=== PATIENT | male | born 1980 | race Caucasian/White ===

== ENCOUNTER 2018-05-24 10:58 | Emergency (ER) | payer MEDICAID ==
[2018-05-24] MEDS ORDERED: Naloxone 0.4 mg/ml Inj (Adult) ONE (11:03)
[2018-05-24 11:08] VITALS: RESP 19; O2SAT 98
--- NOTE | 2018-05-24 11:08 | ED PDOC ---
HPI: Psych/Substance Abuse Time Seen by Provider: 05/24/18 11:01 Chief Complaint (Nursing): Substance Abuse Chief Complaint (Provider): substance abuse History Per: EMS, Other (girlfriend) Onset/Duration Of Symptoms: Hrs Past Medical History Reviewed: Historical Data, Nursing Documentation, Vital Signs - Medical History PMH: No Chronic Diseases - Surgical History Surgical History: No Surg Hx - Family History Family History: States: Unknown Family Hx - Home Medications Home Medications: Ambulatory Orders Medication Instructions Recorded Clindamycin [Cleocin] 300 mg PO TID #30 cap 11/06/15 - Allergies Allergies/Adverse Reactions: Allergies Allergy/AdvReac Type Severity Reaction Status Date / Time No Known Allergies Allergy Verified 11/06/15 19:10 Review of Systems Review Of Systems: ROS cannot be obtained secondary to pt's inabilty to answer questions. Physical Exam - Reviewed Nursing Documentation Reviewed: Yes Vital Signs Reviewed: Yes - Physical Exam Head Exam: Positive for: ATRAUMATIC, NORMAL INSPECTION, NORMOCEPHALIC Skin: Positive for: Normal Color, Warm, Dry Eye Exam: Positive for: EOMI, Other (Pinpoint pupils) Neck: Positive for: Normal Cardiovascular/Chest: Positive for: Regular Rate, Rhythm. Negative for: Murmur Respiratory: Positive for: Other (Assisted with BVM) Gastrointestinal/Abdominal: Positive for: Normal Exam, Soft. Negative for: Tenderness Back: Positive for: Normal Inspection Extremity: Positive for: Normal ROM (all extremities). Negative for: Deformity, Swelling Neurologic/Psych: Positive for: Alert Medical Decision Making Medical Decision Making: Time: 11:01 Initial Impression: substance abuse Initial Plan: Scribe Attestation: Documented by Tre Montemayor, acting as a scribe for Scott Johnson MD Provider Scribe Attestation: All medical record entries made by the Scribe were at my direction and personally dictated by me. I have reviewed the chart and agree that the record accurately reflects my personal performance of the history, physical exam, medical decision making, and the department course for this patient. I have also personally directed, reviewed, and agree with the discharge instructions and disposition. Disposition - Disposition Forms: [employer] (Cymro)
[2018-05-24] MEDS ORDERED: Naloxone 0.4 mg/ml Inj (Adult) IVP STA (11:13)
[2018-05-24] MEDS ORDERED: Sodium Chloride 0.9% 1,000 ML IV STA (11:14)
--- NOTE | 2018-05-24 11:19 | ED PDOC ---
HPI: Psych/Substance Abuse Time Seen by Provider: 05/24/18 11:01 Chief Complaint (Nursing): Substance Abuse Chief Complaint (Provider): Substance abuse ED Caveat: Acuity of Condition History Per: EMS, Family, Other (Girlfriend) History/Exam Limitations: clinical condition Onset/Duration Of Symptoms: Hrs (prior to arrival) Additional Complaint(s): Pedro Dang is a 37 year old male, with no significant past medical history, who was brought to the emergency department by EMS unconscious from possible substance abuse. Per girlfriend, patient went to visit a friend in [place] but when he came back she noticed he was acting differently and lost consciousness which prompted her to bring him to the hospital. They were in the car when this happened. On arrival to ED, patient is unconscious, diaphoretic and with pinpoint pupils. Unable to obtain full history from patient due to clinical condition. PMD: None Past Medical History Reviewed: Historical Data, Nursing Documentation, Vital Signs Vital Signs: Last Vital Signs Temp 97.6 F 05/24/18 11:04 Pulse 100 H 05/24/18 11:04 Resp 19 05/24/18 11:04 BP Pulse Ox 98 05/24/18 11:04 - Medical History PMH: No Chronic Diseases - Surgical History Surgical History: No Surg Hx - Family History Family History: States: Unknown Family Hx - Home Medications Home Medications: Ambulatory Orders Medication Instructions Recorded Clindamycin [Cleocin] 300 mg PO TID #30 cap 11/06/15 Naloxone HCl [Narcan] 4 mg NS ONCE PRN #1 spray 05/24/18 - Allergies Allergies/Adverse Reactions: Allergies Allergy/AdvReac Type Severity Reaction Status Date / Time No Known Allergies Allergy Verified 11/06/15 19:10 Review of Systems Review Of Systems: ROS cannot be obtained secondary to pt's inabilty to answer questions. Physical Exam - Reviewed Nursing Documentation Reviewed: Yes Vital Signs Reviewed: Yes - Physical Exam Appears: Positive for: In Acute Distress Head Exam: Positive for: ATRAUMATIC, NORMAL INSPECTION, NORMOCEPHALIC Skin: Positive for: Normal Color, Warm, Dry Eye Exam: Positive for: PERRL, Other (Pinpoint pupils) Neck: Positive for: Supple Cardiovascular/Chest: Positive for: Regular Rate, Rhythm. Negative for: Murmur Respiratory: Positive for: Other (Assisted with BVM). Negative for: Accessory Muscle Use Gastrointestinal/Abdominal: Positive for: Normal Exam, Soft. Negative for: Tenderness Back: Positive for: Normal Inspection Extremity: Positive for: Other (no moving extremities). Negative for: Deformity Neurologic/Psych: Positive for: Other (not responding to any commands). 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, Oriented - Laboratory Results Result Diagrams: 05/24/18 11:36 02 11:36 Lab Results: 16.5 wbc; urine opiates and marijuana - ECG ECG: Positive for: Interpreted By Me, Viewed By Me ECG Rhythm: Positive for: Normal QRS, Normal ST Segment, Sinus Rhythm O2 Sat by Pulse Oximetry: 98 (RA) Pulse Ox Interpretation: Normal - CT Scan/US ct Other Rad Studies (CT/US): Read By Radiologist Other Rad Interpretation: no acute - Critical Care Total Time (In Min): 30 Documented Critical Care: Time excludes all time spent performint seperately billable procedures Medical Decision Making Medical Decision Making: Time: 11:01 Initial Impression: Substance abuse Initial Plan: --EKG --Alcohol serum --CMP --Drug screen, urine --Troponin I --CBC w/ differential --NaCl 1,000 ml IV 1,000 ml/hr --Narcan 2 mg IVP -BVM used to assist pt. respirations. 11:02 -Patient became alert and responsive after 2mg of Narcan. 12:[address] FINDINGS: HEMORRHAGE: No intracranial hemorrhage. BRAIN: No mass effect or edema. No atrophy or chronic microvascular ischemic changes. VENTRICLES: Unremarkable. No hydrocephalus. CALVARIUM: Unremarkable. PARANASAL SINUSES: Unremarkable as visualized. No significant inflammatory changes. MASTOID AIR CELLS: Unremarkable as visualized. No inflammatory changes. OTHER FINDINGS: None. IMPRESSION: Normal CT of the Head. No acute intracranial hemorrhage. 12:40 -On reevaluation, patient reports feeling better but denies taking any drugs. Patient admits to smoking cigarettes but denies substance abuse. Patient denies any suicidal or homicidal ideation. -Per girlfriend, no hx of substance abuse or drugs. Scribe Attestation: Documented by Tre Montemayor, acting as a scribe for Evaristo Kelley MD Provider Scribe Attestation: All medical record entries made by the Scribe were at my direction and personally dictated by me. I have reviewed the chart and agree that the record accurately reflects my personal performance of the history, physical exam, medical decision making, and the department course for this patient. I have also personally directed, reviewed, and agree with the discharge instructions and disposition. 1313: Stable. AAOx3. Pain free. Tolerated PO. Ambulated with no issues. UDS positive. Disposition - Clinical Impression Clinical Impression: Drug abuse - Patient ED Disposition Is Patient to be Admitted: No Counseled Patient/Family Regarding: Studies Performed, Diagnosis, Need For Followup, Rx Given - Disposition Referrals: [facility] [Outside] - 05/27/18 Disposition: Routine/Home Disposition Time: 13:16 Condition: STABLE Additional Instructions: Return if not better in 3 days. Prescriptions: Naloxone HCl [Narcan] 4 mg NS ONCE PRN #1 spray PRN Reason: Opiate Reversal Instructions: Drug Abuse and Drug Addiction (DC)
[2018-05-24 11:50] LABS: BASO # 0.1 K/uL (0.0-0.2); BASO % 0.7 % (0.0-2.0); EOS # 0.2 K/uL (0.0-0.7); EOS % 1.2 % (0.0-4.0); HEMOGLOBIN 13.6 g/dL (12.0-18.0); LYMPH # 5.8 K/uL (1.0-4.3); LYMPH % 35.3 % (20.0-40.0); MEAN CELL VOLUME 91.5 fl (80.0-94.0); MEAN CORPUSCULAR HEMOGLOBIN 29.7 pg (27.0-31.0); MEAN CORPUSCULAR HGB CONC 32.5 g/dL (33.0-37.0); MEAN PLATELET VOLUME 7.9 fl (7.2-11.7); MONO # 1.4 K/uL (0.0-0.8); MONO % 8.7 % (0.0-10.0); NEUT % 54.1 % (50.0-75.0); NRBC % 0.1 % (0.0-0.0); RBC 4.58 Mil/uL (4.40-5.90); RED CELL DISTRIBUTION WIDTH 13.7 % (11.5-14.5); WHITE BLOOD COUNT 16.5 K/uL (4.8-10.8)
[2018-05-24 11:58] LABS: ALB/GLOB RATIO 1.5 (1.0-2.1); ALBUMIN 4.5 g/dL (3.5-5.0); ALT/SGPT 34 U/L (21-72); AST/SGOT 34 U/L (17-59); BLOOD UREA NITROGEN 13 mg/dl (9-20); GFR NON-AFRICAN AMERICAN > 60
[2018-05-24 12:25] LABS: BARBITURATES, UR NEGATIVE (NEGATIVE); BENZODIAZEPINES, UR NEGATIVE (NEGATIVE); OPIATES, UR POSITIVE (NEGATIVE); PHENCYCLIDINE, UR NEGATIVE (NEGATIVE)
--- NOTE | 2018-05-24 12:28 | CT ---
Date of service: 05/24/2018 PROCEDURE: CT HEAD WITHOUT CONTRAST. HISTORY: headache COMPARISON: None available. TECHNIQUE: Axial computed tomography images were obtained through the head/brain without intravenous contrast. Radiation dose: Total exam DLP = 827.68 mGy-cm. This CT exam was performed using one or more of the following dose reduction techniques: Automated exposure control, adjustment of the mA and/or kV according to patient size, and/or use of iterative reconstruction technique. FINDINGS: HEMORRHAGE: No intracranial hemorrhage. BRAIN: No mass effect or edema. No atrophy or chronic microvascular ischemic changes. VENTRICLES: Unremarkable. No hydrocephalus. CALVARIUM: Unremarkable. PARANASAL SINUSES: Unremarkable as visualized. No significant inflammatory changes. MASTOID AIR CELLS: Unremarkable as visualized. No inflammatory changes. OTHER FINDINGS: None. IMPRESSION: Normal CT of the Head. No acute intracranial hemorrhage.
[2018-05-24] MEDS ORDERED: Potassium Chloride 20 mEq ER Tab PO STA (13:15)
[2018-05-24] MEDS ORDERED: Potassium Chloride 20 mEq ER Tab PO ONE (13:34)
[2018-05-24 13:59] VITALS: BP 128/80; PULSE 78; TEMP 97.7
--- NOTE | 2018-05-24 21:53 | CARD ---
APPROVED REPORT Date of service: 05/24/2018 EKG Measurement Heart [id number] <Conclusion> Normal sinus rhythm Normal ECG
== END 2018-05-24 14:24 | disposition home or self-care (01) ==
LOC: H.ER 10:58
DX: F19.10 Other psychoactive substance abuse, uncomplicated (principal); F17.210 Nicotine dependence, cigarettes, uncomplicated
CPT/HCPCS: 70450; 80053; 80320; 80324; 80345; 80346; 80349; 80353; 80358; 80361; 82948; 83992; 84484; 85025; 93005; 96374; 99283; J2310; J7030

== ENCOUNTER 2018-05-25 05:37 | Emergency (ER) | payer MEDICAID, OTHER ==
[2018-05-25 05:46] VITALS: BMI 26.1
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
[2018-05-25 08:20] VITALS: BP 110/78; PULSE 78; RESP 19; TEMP 97.6; O2SAT 98
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
== END 2018-05-25 08:33 ==
LOC: H.ER 05:37
DX: S09.90XA Unspecified injury of head, initial encounter (principal); Y04.0XXA Assault by unarmed brawl or fight, initial encounter; Y92.89 Other specified places as the place of occurrence of the external cause

== ENCOUNTER 2018-06-30 02:21 | Emergency (ER) | payer OTHER ==
[2018-06-30 02:22] VITALS: BMI 26.1
--- NOTE | 2018-06-30 02:37 | ED PDOC ---
HPI: Psych/Substance Abuse Time Seen by Provider: 06/30/18 02:29 Chief Complaint (Nursing): Alcohol Ingestion Chief Complaint (Provider): Alcohol Ingestion ED Caveat: Intoxicated History Per: Patient History/Exam Limitations: intoxication Onset/Duration Of Symptoms: Unknown Current Symptoms Are (Timing): Still Present Modifying Factor(s): Alcohol Additional Complaint(s): 37 y/o male brought in by EMS for evaluation of public intoxication. History limited due to patient's intoxicated state. PMD: no provider Past Medical History Reviewed: Historical Data, Nursing Documentation, Vital Signs Vital Signs: Last Vital Signs Temp 98.0 F 06/30/18 02:24 Pulse 99 H 06/30/18 02:24 Resp 16 06/30/18 02:24 BP 137/83 06/30/18 02:24 Pulse Ox 99 06/30/18 02:24 - Medical History PMH: No Chronic Diseases Denies: Diabetes, Hepatitis, HIV, HTN, Seizures, Sexually Transmitted Disease - Surgical History Surgical History: No Surg Hx - Family History Family History: States: Unknown Family Hx - Social History Alcohol: > 2 Drinks/Day - Home Medications Home Medications: Ambulatory Orders Medication Instructions Recorded Clindamycin [Cleocin] 300 mg PO TID #30 cap 11/06/15 Naloxone HCl [Narcan] 4 mg NS ONCE PRN #1 spray 05/24/18 - Allergies Allergies/Adverse Reactions: Allergies Allergy/AdvReac Type Severity Reaction Status Date / Time No Known Allergies Allergy Verified 05/25/18 06:03 Review of Systems ROS Statement: Except As Marked, All Systems Reviewed And Found Negative Psych: Positive for: Other (public alcohol intoxication) Physical Exam - Reviewed Nursing Documentation Reviewed: Yes Vital Signs Reviewed: Yes - Physical Exam Appears: Positive for: No Acute Distress Head Exam: Positive for: ATRAUMATIC, NORMOCEPHALIC Skin: Positive for: Normal Color, Warm, Dry Eye Exam: Positive for: Normal appearance, EOMI, PERRL Neck: Positive for: Normal, Painless ROM, Supple Cardiovascular/Chest: Positive for: Regular Rate, Rhythm Respiratory: Positive for: Normal Breath Sounds. Negative for: Respiratory Distress Gastrointestinal/Abdominal: Positive for: Normal Exam, Soft. Negative for: Tenderness Extremity: Positive for: Normal ROM. Negative for: Deformity Neurological/Psych: Positive for: Awake, Alert, Oriented, Other (slurred speech). Negative for: Motor/Sensory Deficits - ECG O2 Sat by Pulse Oximetry: 99 (RA) Pulse Ox Interpretation: Normal Medical Decision Making Medical Decision Making: Time: 228 Impression: 37 y/o male presenting for public alcohol intoxication Plan: -- Alcohol Serum -- Accucheck Time: 643 -- On re-evaluation, patient appears clinically sober for discharge home at this time. Scribe Attestation: Documented by Adamaris Quesada, acting as a scribe Regina Stiles MD. Provider Scribe Attestation: All medical record entries made by the Scribe were at my direction and personally dictated by me. I have reviewed the chart and agree that the record accurately reflects my personal performance of the history, physical exam, medical decision making, and the department course for this patient. I have also personally directed, reviewed, and agree with the discharge instructions and disposition. Disposition - Clinical Impression Clinical Impression: Alcohol abuse with intoxication - Patient ED Disposition Is Patient to be Admitted: No Counseled Patient/Family Regarding: Studies Performed, Diagnosis - Disposition Disposition: Routine/Home Disposition Time: 06:44 Condition: STABLE Instructions: Alcohol Use - When Is Drinking a Problem? Forms: [employer] (Bengali)
[2018-06-30 10:25] VITALS: BP 110/70; PULSE 76; RESP 16; TEMP 97.8; O2SAT 100
== END 2018-06-30 10:00 | disposition home or self-care (01) ==
LOC: H.ER 02:21
DX: F10.129 Alcohol abuse with intoxication, unspecified (principal)